=== PATIENT | female | born 1990 | race Caucasian/White ===

== ENCOUNTER 2021-10-27 01:42 | Emergency (ER) | payer OTHER ==
[2021-10-27 02:45] LABS: BILIRUBIN NEGATIVE (NEGATIVE); BLOOD NEGATIVE Ery/uL (NEGATIVE); CLARITY CLEAR (CLEAR); COLOR YELLOW (YELLOW); GLUCOSE (U) NORMAL (NORMAL); NITRITE NEGATIVE (NEGATIVE); PROTEIN NEGATIVE (NEGATIVE); UROBILINOGEN 0.2 mg/dL (0.2-1.0); pH 6.5 (5.0-9.0)
[2021-10-27 02:46] LABS: LEUKOCYTES NEGATIVE Leu/uL (NEGATIVE)
[2021-10-27 02:48] LABS: BACTERIA TRACE; URINARY RBC RARE; URINARY WBC RARE
[2021-10-27 03:05] LABS: ALBUMIN 3.1 g/dL (3.4-5.0); BILIRUBIN - TOTAL 0.1 mg/dL (0.2-1.0); CREATININE 0.56 mg/dL (0.51-0.95); GLOBULIN (CALCULATION) 3.1 g/dL; POTASSIUM 3.9 mmol/L (3.5-5.1); TOTAL PROTEIN 6.2 g/dL (6.4-8.2)
[2021-10-27 03:07] LABS: BASOPHIL 0.3 % (0-2); EOSINOPHIL 0.4 % (0-5); HCT 31.3 % (37.0-47.0); HGB 10.4 g/dl (12.5-16.0); LYMPHOCYTE 24.2 % (15-48); MCHC 33.2 g/dL (32.0-36.0); MCV 93.2 fL (78.0-100.0); MONOCYTE 8.6 % (0-12); MPV 11.3 fL (6.0-9.5); NEUTROPHIL 65.6 % (41-80); NRBC 0; PLT 180 K/uL (150-400); RBC 3.36 M/uL (4.20-5.40); RDW 14.7 % (11.5-14.0); WBC 10.3 K/uL (4.0-10.5)
[2021-10-28 22:06] LABS: CHLAMYDIA TRACHOMATIS, NAA Negative (Negative); NEISSERIA GONORRHOEAE, NAA Negative (Negative)
== END 2021-10-27 04:45 | disposition home or self-care (01) ==
LOC: FER 01:42
PROVIDERS: Emergency Medicine
DX: O99.891 Other specified diseases and conditions complicating pregnancy (principal); M54.50 Low back pain, unspecified; R10.9 Unspecified abdominal pain; Z88.0 Allergy status to penicillin; O99.331 Smoking (tobacco) complicating pregnancy, first trimester; F17.200 Nicotine dependence, unspecified, uncomplicated; Z3A.12 12 weeks gestation of pregnancy
CPT/HCPCS: 36415; 76801; 80053; 81001; 84702; 85025; 87210; 87491; 87591